=== PATIENT | male | born 1995 | race Hispanic/Latino ===

== ENCOUNTER 2017-03-09 22:31 | Emergency (ER) | payer OTHER ==
[2017-03-09 23:03] VITALS: RESP 20
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
[2017-03-10 00:04] VITALS: BP 131/81; PULSE 112; TEMP 97.8
[2017-03-10 00:09] VITALS: O2SAT 97
== END 2017-03-10 00:04 | disposition home or self-care (01) ==
LOC: C.ER 22:31
DX: S39.012A Strain of muscle, fascia and tendon of lower back, initial encounter (principal); V49.9XXA Car occupant (driver) (passenger) injured in unspecified traffic accident, initial encounter